=== PATIENT | female | born 1990 | race Hispanic/Latino ===

== ENCOUNTER 2019-04-13 10:32 | Emergency (ER) | payer OTHER ==
[~2019-04-13] VITALS: Ht 160 cm; Wt 114.0 kg
[2019-04-13 10:49] LABS: URINE BILIRUBIN - DIPSTICK NEGATIVE (NEGATIVE); URINE BLOOD DIPSTICK LARGE (NEGATIVE); URINE COLOR YELLOW; URINE GLUCOSE - DIPSTICK NEGATIVE (NEGATIVE); URINE KETONE NEGATIVE (NEGATIVE); URINE NITRITE - DIPSTICK POSITIVE (Negative); URINE PROTEIN - DIPSTICK NEGATIVE (NEG-TRACE); URINE SPECIFIC GRAVITY 1.025; URINE UROBILINOGEN - DIPSTICK 0.2 E.U./dL (0.2)
[2019-04-13 10:50] LABS: URINE LEUK ESTERASE SMALL (NEGATIVE)
[2019-04-13] MEDS ORDERED: OMNICEF300 M1 PO (10:55)
[2019-04-13 10:57] LABS: URINE RBC TNTC RBC/hpf (0-5); URINE WBC 20-50 WBC/hpf (0-5)
[2019-04-13 10:58] LABS: URINE BACTERIA MODERATE hpf; URINE SQUAMOUS EPITHELIAL CELL FEW EPI/hpf (0-FEW)
[2019-04-13 11:02] VITALS: BP 138/92
== END 2019-04-13 11:02 | disposition home or self-care (01) | DRG 690 ==
LOC: ED 10:32
PROVIDERS: Family Medicine
DX: N39.0 Urinary tract infection, site not specified (principal); B96.1 Klebsiella pneumoniae [K. pneumoniae] as the cause of diseases classified elsewhere